=== PATIENT | male | born 1980 | race Caucasian/White ===

== ENCOUNTER → 2019-07-03 18:17 | Outpatient (ROUT) | payer OTHER, SELFPAY ==
[2019-07-03 19:06] LABS: Cholesterol 173 mg/dL (140-199); Glucose 85 mg/dL (70-100); HDL Cholesterol 41 mg/dL (40-60); LDL Cholesterol Calculated 79 mg/dL (<100); Triglycerides 265 mg/dL (35-150)
== END ==
PROVIDERS: Visit Provider Internal Medicine
DX: Z00.00 Encounter for general adult medical examination without abnormal findings (principal)
CPT/HCPCS: 80061; 82947

== ENCOUNTER → 2019-12-20 15:12 | Outpatient (CLI) | payer OTHER, SELFPAY ==
--- NOTE | 2019-12-20 | DI.RAD.S_ITS ---
PROCEDURE: XR LUMBAR SPINE 2-3V INDICATIONS: low back pain TECHNIQUE: 3 views of the lumbar spine were acquired. COMPARISON: None. FINDINGS: Bones: No fracture or focal osseous destruction. Mild-moderate narrowing of the L5-S1 disc space. Multilevel degenerative endplate sclerosis and spurring. Diffuse facet arthropathy. Soft tissues: Overlying bowel gas pattern is normal. No suspicious soft tissue calcifications. IMPRESSION: Mild L5-S1 disc degeneration. Mild diffuse facet arthropathy Dictated by: Rangel Edmond M.D. on 12/20/2019 at 16:57 Approved by: Rangel Edmond M.D. on 12/20/2019 at 16:58
--- NOTE | 2019-12-20 | DI.MRI.S_ITS ---
PROCEDURE: MR LUMBAR SPINE WO CON INDICATIONS: low back pain TECHNIQUE: Noncontrast sagittal T1 spin echo and T2 fast echo, sagittal STIR, axial T1 and T2 fast spin echo through the lumbar spine. In cases with scoliosis, additional coronal T2 fast spin echo may be performed. COMPARISON: [facility], CR, XR LUMBAR SPINE 2-3V, 12/20/2019, 15:58. FINDINGS: Image quality: Excellent. Alignment and Curvature: There is normal bony alignment. Bone Marrow: Marrow is of normal overall signal. No acute vertebral body compression fractures. Spinal Cord: Conus medullaris terminates at the L3 level. Visualized cord demonstrates normal signal and size. Paraspinous Soft Tissues: No paravertebral masses. Discs: Moderate desiccation is present at L5-S1. L1-L2: No disc bulge, spinal stenosis or foraminal narrowing. L2-L3: Minimal disc bulge without spinal stenosis or foraminal narrowing. L3-L4: No disc bulge, spinal stenosis or foraminal narrowing. L4-L5: Minimal disc bulge without spinal stenosis or foraminal narrowing. L5-S1: Mild disc bulge with superimposed protrusion and extrusion. Extrusion has extended in the cranial direction. Craniocaudal dimension of the extruded fragment measures 14 mm. The extrusion and protrusion are causing severe compromise of the left lateral recess as well as exiting left L5 nerve roots. There is mild bilateral foraminal narrowing. IMPRESSION: 1. Prominent protrusion as well as superimposed extrusion with cranial migration at the level of L5-S1 as above. It is causing significant compromise of the lateral recess as well as exiting left nerve roots. Dictated by: Maddie Plata M.D. on 12/20/2019 at 16:23 Approved by: Maddie Plata M.D. on 12/20/2019 at 16:27
== END ==
PROVIDERS: Referring Provider Internal Medicine; Visit Provider Internal Medicine
DX: M51.27 Other intervertebral disc displacement, lumbosacral region (principal); M51.37 Other intervertebral disc degeneration, lumbosacral region; M47.817 Spondylosis without myelopathy or radiculopathy, lumbosacral region; G57.32 Lesion of lateral popliteal nerve, left lower limb
CPT/HCPCS: 72100; 72148

== ENCOUNTER → 2020-07-16 19:03 | Outpatient (CLI) | payer OTHER, SELFPAY ==
--- NOTE | 2020-07-16 | DI.MRI.S_ITS ---
PROCEDURE: MR LUMBAR SPINE WO CON INDICATIONS: other intervertebral disc displacement TECHNIQUE: Noncontrast sagittal T1 spin echo and T2 fast echo, sagittal STIR, axial T1 and T2 fast spin echo through the lumbar spine. In cases with scoliosis, additional coronal T2 fast spin echo may be performed. COMPARISON: None. FINDINGS: Image quality: Excellent. Alignment and Curvature: There is normal bony alignment. Bone Marrow: Marrow is of normal overall signal. No acute vertebral body compression fractures. Spinal Cord: Conus medullaris terminates at the L2 level. Visualized cord demonstrates normal signal and size. Paraspinous Soft Tissues: No paravertebral masses. L1-L2: Normal appearance. L2-L3: Normal appearance. L3-L4: Normal appearance. L4-L5: Normal appearance. L5-S1: Loss of disc signal and slight loss of disc height. Mild, diffuse disc bulge. Left central/left foraminal disc protrusion. Disc protrusion abuts and compresses the traversing left S1 nerve root. Mild narrowing of the central canal. Moderate left neural foraminal narrowing. Fissure noted in the left central annulus. IMPRESSION: 1. Mild to moderate L5-S1 degenerative disc disease. 2. Left central/left foraminal L5-S1 disc protrusion. Disc protrusion abuts and compresses the left S1 nerve root. Please correlate with clinical data. 3. Mild L5-S1 central canal narrowing. 4. Moderate left L5-S1 neural foraminal narrowing. 5. L5-S1 disc annulus fissure. Dictated by: Lois Gallegos MD, PhD on 07/17/2020 at 11:58 Approved by: Lois Gallegos MD, PhD on 07/17/2020 at 12:01
== END ==
PROVIDERS: Referring Provider Physician Assistant Surgical; Visit Provider Physician Assistant Surgical
DX: M51.26 Other intervertebral disc displacement, lumbar region (principal); M51.37 Other intervertebral disc degeneration, lumbosacral region; M51.27 Other intervertebral disc displacement, lumbosacral region; M48.07 Spinal stenosis, lumbosacral region
CPT/HCPCS: 72148

== ENCOUNTER → 2021-02-12 13:16 | Outpatient (CLI) | payer OTHER, SELFPAY ==
[2021-02-12] MEDS: COVID-19 VACC #1, MRNA(MOD) 100 MCG/0.5 ML VIAL IM (13:25)
== END ==
PROVIDERS: Visit Provider Internal Medicine
DX: Z23 Encounter for immunization (principal)
CPT/HCPCS: 0011A; 91301

== ENCOUNTER → 2021-03-18 15:13 | Outpatient (CLI) | payer OTHER, SELFPAY ==
[2021-03-18] MEDS: COVID-19 VACC #2, MRNA(MOD) 100 MCG/0.5 ML VIAL IM (15:20)
== END ==
PROVIDERS: Visit Provider Internal Medicine
DX: Z23 Encounter for immunization (principal)
CPT/HCPCS: 0012A; 91301

== ENCOUNTER 2024-03-01 13:46 | Emergency (ER) | payer BC, SELFPAY ==
[2024-03-01 13:53] VITALS: BP 99/54; PULSE 52; RESP 16; TEMP 37.1; O2SAT 98; BMI 29.8
--- NOTE | 2024-03-01 14:05 | ED.LOWEXIN ---
HPI - Extremity Injury (Lower) <Marsha Dominguez PA-C - Last Filed: 03/01/24 16:42> General Chief Complaint: Extremity Injury, Lower Stated Complaint: injured achilles tendon Time Seen by Provider: 03/01/24 14:05 Source: patient Mode of arrival: Wheelchair History of Present Illness HPI Narrative: 46-year-old male presents today with right lower leg pain. 45 minutes prior to arrival he was playing pickleball when he lunged and he felt a pop in his right lower leg he points to his calf. He states he had pain with weightbear but managed to somehow get his truck and drive here. He is denying any prior injuries, no numbness, tingling or loss of sensation, he reports no discoloration no treatment tried although ice was applied upon arrival here. All other systems are reviewed and are negative. Related Data Allergies Allergy/AdvReac Type Severity Reaction Status Date / Time No Known Drug Allergies Allergy Verified 03/01/24 13:53 Review of Systems <Marsha Dominguez PA-C - Last Filed: 03/01/24 16:42> Review of Systems Narrative: See HPI. Patient History <Marsha Dominguez PA-C - Last Filed: 03/01/24 16:42> Medical History (Updated 03/01/24 @ 14:21 by Marsha Dominguez PA-C) BMI 30.0-30.9,adult Hypertriglyceridemia without hypercholesterolemia Family History (Updated 05/04/22 @ 09:06 by Hao Ocasio DO) Father Brain tumor (benign) Colon polyps Cholelithiasis Mother Diabetes mellitus Hypertension Social History Smoking Status: Former smoker Smoking Status: Former smoker alcohol intake frequency: holidays/special occasions only Substance Use Type: does not use Exam <Marsha Dominguez PA-C - Last Filed: 03/01/24 16:42> Initial Vital Signs Initial Vital Signs: Vital Signs Temperature 98.7 F 03/01/24 13:53 Pulse Rate 52 L 03/01/24 13:53 Respiratory Rate 16 03/01/24 13:53 Blood Pressure 99/54 L 03/01/24 13:53 Pulse Oximetry 98 03/01/24 13:53 Oxygen Delivery Method Room Air 03/01/24 13:53 Reviewed and are normal except for slightly low blood pressure. He is asymptomatic. Const Other: Seated, smiling, no distress. Athletic appearing. Skin Other: Lower extremities, no discoloration or breaks in the skin no obvious soft tissue swelling. Neuro Other: Distal neurovascular is grossly intact to his right lower leg. Normal temperature, turgor, color. Extrem Other: Pain with weightbear, active range of motion he is hesitant to move but he is able to demonstrate dorsiflexion and extension. He has no focal tenderness along the lower Achilles, he will compression is negative. No issues identified with the foot or ankle. He is tender on the lower gastrocnemius more so on the lateral side, there is no crepitation, no subcutaneous air. He is slightly guarded. He has full range of motion to his knee. He is examined in the prone position and he is negative for Mckeon's test. Distal DP and PT pulses are grossly intact. His foot and toes are warm, normal capillary refill. Following his x-ray I asked him to try and weightbear he is able to do so but when he leans forward to stretch his calf with increased dorsiflexion this causes pain. <Lea Hood DO - Last Filed: 03/07/24 20:59> Initial Vital Signs Initial Vital Signs: Vital Signs Temperature 98.7 F 03/01/24 13:53 Pulse Rate 52 L 03/01/24 13:53 Respiratory Rate 16 03/01/24 13:53 Blood Pressure 99/54 L 03/01/24 13:53 Pulse Oximetry 98 03/01/24 13:53 Oxygen Delivery Method Room Air 03/01/24 13:53 Course <Marsha Dominguez PA-C - Last Filed: 03/01/24 16:42> Course Course Narrative: Examination, application of walking boot with crutch training, they expressed concerns with obtaining an MRI as ?they have had 1 performed here in the past, I did contact our fish technologist to see about obtaining a soft tissue ultrasound but those are not performed for this type of injury in-house. I advised he and his that the MRIs are for emergent conditions and that this can be ordered by his PCP. Orders Ordered: ED Orders 03/01/24 14:21 XR tibia fibula RT 2V Stat Reevaluation(s) Reevaluation #1: Re-evaluated following walking boot placement and crutches. He is road tested and he is safe, he is able to apply full weightbear. Vital Signs Vital signs: Vital Signs - 8 hr 03/01/24 13:53 Temperature 98.7 F Pulse Rate 52 L Respiratory Rate 16 Blood Pressure 99/54 L Pulse Oximetry 98 Oxygen Delivery Method Room Air <Lea Hood DO - Last Filed: 03/07/24 20:59> Orders Ordered: ED Orders 03/01/24 14:21 XR tibia fibula RT 2V Stat Vital Signs Vital signs: Vital Signs - 8 hr 03/01/24 13:53 Temperature 98.7 F Pulse Rate 52 L Respiratory Rate 16 Blood Pressure 99/54 L Pulse Oximetry 98 Oxygen Delivery Method Room Air MDM - Extremity Injury (Lower) <Marsha Dominguez PA-C - Last Filed: 03/01/24 16:42> Imaging Data Extremity x-ray #1: My Impression: No acute fracture or bony abnormality. Radiologist's Impression: PROCEDURE: XR TIBIA FUBULA RT 2V INDICATIONS: [place] a pop base of calf during pickle ball TECHNIQUE: 2 views of the tibia and fibula were acquired. COMPARISON: None. FINDINGS: Bones: No fractures or dislocations. No suspicious bony lesions. Soft tissues: No suspicious soft tissue calcifications or masses. IMPRESSION: Normal plain films. If it would be helpful for clinical management decision making in this patient with this given history, please consider a dedicated, scheduled ankle MRI for further evaluation (assuming that there is no contraindication). Dictated by: Manas Blanchard M.D. on 03/01/2024 at 15:20 Approved by: Manas Blanchard M.D. on 03/01/2024 at 15:21 [facility] Narrative Medical decision making narrative: I believe he has an acute gastrocnemius strain, differential includes a partial tear which would involve the muscle or his Achilles at the origin, he has good flexion and extension however and just has worsening pain with forced dorsiflexion as if he were stretching his calf. He is placed in a cam boot and given crutches as I would like him to have assisted weightbear at minimum. Discharge Plan Departure Patient Disposition: Home Clinical Impression: Lower extremity sprain Instructions: DI for Calf Muscle Strain Activity Restrictions/Additional Instructions: I would like you to wear the boot at all times, you can remove for showering but please use a chair please wear during bedtime and sleep, you may on Maik your bedding to allow your foot to hang off the edge if you are a stomach sleeper. I would like you to use the crutches as assisted weightbear at minimum. Your x-ray today showed no fracture, as you know soft tissues can tear including tendons and muscles. We can not exclude a partial tear or tear of your gastrocnemius which is your calf muscle, the soleus was just underneath or the Achilles where it originates. You did demonstrate good movement of the foot however. I would like you to follow-up with your primary care provider and they will be able to provide you that referral to Orthopedics. There are many to choose from, and it also depends on your insurance. Please message your PCP and let them know of your visit here at the emergency department. Please elevate your leg, ice it as much as you can, 10-15 minutes duration several times a day. Please seek medical attention if you have any worsening symptoms, increased swelling, pain, color changes, numbness or tingling or any other concerns. You may use Tylenol or ibuprofen for pain. Referrals: Miscellaneous,Doctor, [Primary Care Provider] - Stand Alone Forms: Patient Portal/API ED Sign-out <Lea Hood DO - Last Filed: 03/07/24 20:59> Cosign ED Attending Sebastianature Attestation: I was available for consultation.
--- NOTE | 2024-03-01 14:21 | DI.RAD.S_ITS ---
PROCEDURE: XR TIBIA FUBULA RT 2V INDICATIONS: [place] a pop base of calf during pickle ball TECHNIQUE: 2 views of the tibia and fibula were acquired. COMPARISON: None. FINDINGS: Bones: No fractures or dislocations. No suspicious bony lesions. Soft tissues: No suspicious soft tissue calcifications or masses. IMPRESSION: Normal plain films. If it would be helpful for clinical management decision making in this patient with this given history, please consider a dedicated, scheduled ankle MRI for further evaluation (assuming that there is no contraindication). Dictated by: Manas Blanchard M.D. on 03/01/2024 at 15:20 Approved by: Manas Blanchard M.D. on 03/01/2024 at 15:21
[2024-03-01 16:22] VITALS: BP 114/69; PULSE 65; RESP 18; O2SAT 98
== END 2024-03-01 16:24 | disposition home or self-care (01) ==
PROVIDERS: Emergency Provider Physician Assistant Medical
DX: S86.111A Strain of other muscle(s) and tendon(s) of posterior muscle group at lower leg level, right leg, initial encounter (principal); X50.9XXA Other and unspecified overexertion or strenuous movements or postures, initial encounter; Y93.89 Activity, other specified
CPT/HCPCS: 73590; 99283

== ENCOUNTER → 2024-03-07 11:43 | Outpatient (CLI) | payer BC, SELFPAY ==
--- NOTE | 2024-03-07 11:44 | DI.MRI.S_ITS ---
PROCEDURE: MR LOWER LEG RT WO CON INDICATIONS: Strain of right Achilles tendon, initial encounter TECHNIQUE: Noncontrast coronal and sagittal T1 spin echo and STIR; axial T1 spin echo and T2 fast spin echo with fat saturation through the right lower leg. COMPARISON: [facility], CR, XR TIBIA FIBULA RT 2V, 03/01/2024, 14:28. FINDINGS: Image quality: Excellent. Bones: The visualized bone marrow demonstrates normal signal on all sequences. The overlying cortex appears intact. No fractures lines or intra-osseous lesions. Soft tissues: There is complete tearing of the Achilles tendon located approximately 6.5 cm above the insertion onto the calcaneus with approximately 2.5 cm separation of tendon stumps. Plantaris tendon remains intact. There is surrounding soft tissue edema and fluid. Mild intramuscular edema is seen in the distal soleus muscle. He varicose veins are noted in the anterior and medial subcutaneous tissues. IMPRESSION: 1. Complete tearing of the Achilles tendon approximately 6.5 cm above the distal insertion with 2.5 cm separation of tendon stumps and surrounding soft tissue edema. Plantaris tendon remains intact. 2. Low-grade strain of the distal soleus muscle. Approved by: Satya Bella M.D. on 03/07/2024 at 13:47
== END ==
PROVIDERS: Family Provider Nurse Practitioner Family; PCP Nurse Practitioner Family; Referring Provider Orthopaedic Surgery Adult Reconstructive Orthopaedic Surgery; Visit Provider Orthopaedic Surgery Adult Reconstructive Orthopaedic Surgery
DX: S86.011A Strain of right Achilles tendon, initial encounter (principal); S96.811A Strain of other specified muscles and tendons at ankle and foot level, right foot, initial encounter; X58.XXXA Exposure to other specified factors, initial encounter
CPT/HCPCS: 73718